=== PATIENT | female | born 1945 | race Caucasian/White ===

== ENCOUNTER 2016-07-07 11:50 | Inpatient (IN) | payer MEDICARE, MEDICAID ==
[~2016-07-07] VITALS: Ht 152.4 cm; Wt 33.4 kg
[2016-07-07 11:54] VITALS: BP 142/70; PULSE 61; RESP 20; O2SAT 100
[2016-07-07 12:54] LABS: BASOPHILS % (AUTO) 0.4 % (0-3); MONOCYTES % (AUTO) 9.4 % (4-12); Mean Corpuscular Hemoglobin 28.7 pg (27.0-35.0); Mean Corpuscular Volume 92.2 fL (81-100); NEUTROPHILS % (AUTO) 68.9 % (40-74); Platelet Count 401 bil/L (150-400)
[2016-07-07 14:03] VITALS: BP 129/72; PULSE 76; RESP 20; O2SAT 97
--- NOTE | 2016-07-07 15:10 | ED.REPORT ---
HPI-Extremity Problem Lower Date of Service Jul 07, 2016 ED Provider: Anthony Mast MD 71 year old female with diabetes and peripheral arterial disease presents to the ER referred by the residency clinic accompanied by her daughter complaining of bilateral foot pain and gangrene of her left first and second toe. Daughter reports that the patient has avoided doctors for the past 5 years, until she was recently seen by Dr. Lockhart, Cardiology, and diagnosed with PAD. Patient has a 50-year history of smoking, but quit in December 2015. She was seen last week by Dr. Arellano at the residency clinic here, and has gained 7lbs since. She is additionally seen podiatry regarding her toes but she is not sure what the plan going forward is. Nursing Notes Stated Complaint: FOOT PAIN Chief Complaint: Extremity Trauma Nursing Notes Reviewed: Yes Allergies: Coded Allergies: No Known Allergies (Verified , 07/07/16) Scheduled Atenolol (Atenolol) 25 Mg Tablet 25 MG PO DAILY Gabapentin (Gabapentin) 100 Mg Capsule 100 MG PO TID Insulin Glargine (Lantus U100 Insulin Vial) 100 Unit/Ml Vial 8-9 UNIT SUBQ HS Methimazole (Methimazole) 10 Mg Tablet 10 MG PO BID Scheduled PRN Albuterol HFA (Proair HFA) 8.5 Gm Hfa.aer.ad 2 PUFFS INH q4-6 hours PRN PRN For Shortness of Breath General Time Seen by MD: 15:09 Chief Complaint Foot injury right, Foot injury left Hx Obtained From: Patient Arrived By: Walk-in Onset Occurred: Onset unknown Location: : Foot left: Foot right Quality: Painful Severity: Current: Moderate Severity: Maximum: Moderate Pertinent Negative: Pt denies other symptoms Recent Healthcare: Recent doctor visit Past Medical History Past Medical History Notes: Dr. Mcmillan, Endocrinology Dr. Lockhart, Cardiology Past Medical History PAD Reports: COPD, Diabetes mellitus Reports: Thyroid disease (Hypothyroid) Smoking History Former Smoker Social History Other Social History: Good social support Ambulatory Status Independent Review of Systems Constitutional: Denies: Chills, Fever Musculoskeletal: Reports: Extremity pain (Feet, bilaterally), Denies: Back pain, Extremity swelling, Joint pain, Lumbar pain, Neck pain Complete sys rev & neg: except as marked. Physical Exam Physical Exam Notes: Initial Vital Signs Vital Signs (First) Date Time Temp Pulse Resp B/P Pulse Ox O2 Delivery O2 Flow Rate FiO2 07/07/16 11:54 36.9 61 20 142/70 100 Room Air Initial VS: Reviewed Head / Eyes: Atraumatic, Normocephalic Neck: Supple, Non-tender, Full range of motion Abdomen / GI: Soft, Non-tender, No guarding, No rebound, No distention Upper Extremities: Vascular intact, Neuro intact, No swelling, No tenderness Skin: Warm, Dry, No cyanosis Neurologic: Alert, Oriented, Nonfocal Lower Extremity / Pelvis / MS: Full range of motion, No deformity, Neurologic intact, Vascular intact Ankle / Foot: Full range of motion, No deformity Gangrene of th distal left 1st and 2nd toes with erythema extending up to the mid-foot. DP pulses detectable by doppler, without palpable pulses, bilaterally. Interpretation & Diagnostics Lab Results Interpretation Result Diagram: 07/07/16 1248 07/07/16 1248 Test 07/07/16 12:48 07/07/16 16:11 White Blood Count 7.0th/mm3 (3.8-10.1) Red Blood Count 3.87mil/mm3 (3.90-5.20) Hemoglobin 11.1g/dL (12.0-15.6) Hematocrit 35.7% (35.0-46.0) Mean Corpuscular Volume 92.2fL (81-100) Mean Corpuscular Hemoglobin 28.7pg (27.0-35.0) Mean Corpuscular Hemoglobin Concent 31.1% (32.0-37.0) Red Cell Distribution Width 12.1% (12.3-15.4) Platelet Count 401bil/L (150-400) Neutrophils (%) (Auto) 68.9% (40-74) Lymphocytes (%) (Auto) 19.0% (14-46) Monocytes (%) (Auto) 9.4% (4-12) Eosinophils (%) (Auto) 2.0% (0-5) Basophils (%) (Auto) 0.4% (0-3) Sodium Level 134mEq/L (134-144) Potassium Level 5.1mEq/L (3.5-5.2) Chloride Level 94mEq/L (97-108) Carbon Dioxide Level 29mmol/L (18-29) Blood Urea Nitrogen 13mg/dL (8-27) Creatinine 0.52mg/dL (0.57-1.00) Estimat Glomerular Filtration Rate 167mL/min (>59) Glucose Level 102mg/dL (60-99) Calcium Level 8.7mg/dL (8.5-10.1) Total Bilirubin 0.2mg/dL (0.0-1.2) Aspartate Amino Transf (AST/SGOT) 29U/L (0-50) Alanine Aminotransferase (ALT/SGPT) 25U/L (0-32) Alkaline Phosphatase 133U/L (25-165) Total Protein 6.3g/dL (6.4-8.4) Albumin 3.5g/dL (3.4-5.0) Lactic Acid Level 4.5mmol/L (0.4-2.0) ECG Interpretation ECG Interpretation: Sinus rhythm, rate 73 Normal axis Normal intervals No ST segment changes Nonspecific repolarization abnormalities No prior ECG available for comparison Time: 16:06 Interpreted by: ED physician X-Ray Interpretation Xray Interpretation: IMPRESSION: 1. Osteopenia without definite radiographic evidence of osteomyelitis. If clinical concern persists, recommend further evaluation with MRI. Dictated by: Esteban Cole M.D. on 07/07/2016 at 16:02 Approved by: Esteban Cole M.D. on 07/07/2016 at 16:03 X-Ray Ordered: Foot left Interpretation / Wet Read by: Interpret - Radiologist Re-Eval/Medical Decision Med Decision/Clinical Course 71 year old female with diabetes and peripheral arterial disease presents to the ER referred by the residency clinic accompanied by her daughter complaining of bilateral foot pain and gangrene of her left first and second toe. Daughter reports that the patient has avoided doctors for the past 5 years, until she was recently seen by Dr. Lockhart, Cardiology, and diagnosed with PAD. Patient has a 50-year history of smoking, but quit in December 2015. She was seen last week by Dr. Arellano at the residency clinic here, and has gained 7lbs since. She is additionally seen podiatry regarding her toes but she is not sure what the plan going forward is. Upon arrival patient is afebrile stable vital signs and examination as above. Of note she has gangrenous appearance about the distal aspect of her left first and second toes with erythema extending up to the midfoot. IV access was obtained and laboratory studies were sent. I administered IV Zosyn. Laboratory studies were notable as below: Lactic acid 4.5 Good renal function CMP otherwise normal No leukocytosis Hct 35.7 X-ray of the foot was obtained as below: 1. Osteopenia without definite radiographic evidence of osteomyelitis. If clinical concern persists, recommend further evaluation with MRI. If this time my concern for gangrene of the toes in the setting of the patient' s underlying diabetes and significant peripheral vascular disease. I feel that she requires admission for further surgical evaluation and possible vascular intervention. Patient was discussed with podiatry and they agree with plan. Discussed patient with admitting hospitalist who will further consult Dr. Beltre for possible vascular intervention. Patient has already had ultrasonography of the lower extremities evaluating extensive vascular disease. Patient was admitted for further evaluation and intervention. Source of Hx: Old records Consultation #1: Referral / Consult Name: Allan Greer DPM Call Returned at: 15:46 Note: Discussed patient case with Dr. Greer, Podiatry. Agrees to consult. Consultation #2: Referral / Consult Name: Augustine Infante MD Consulted With: Hospitalist Call Returned at: 15:59 Binding Bench Worker: Agrees with eval, Agrees with plan, Accepts admit Consultation #3: Referral / Consult Name: Toni SoM Call Returned at: 17:20 Note: Dr. So, Podiatry, is now present. Counseled Regarding: Diagnosis, Lab results, Need for admission Discharge & Departure Impression: Primary Impression: Ischemic foot Additional Impressions: Gangrene Peripheral vascular disease Type II diabetes mellitus Diabetes mellitus complication status: with unspecified complications Qualified Code: E11.8 - Type 2 diabetes mellitus with unspecified complications Elevated lactic acid level Disposition: ADMITTED TO HOSPITAL Discharge Condition All VS Reviewed: Yes Condition: Stable Referrals: [facility] Residency Clinic (PCP) Toni So DPM, Sanjeev MD Crit Care Except Billable Proc Time Spent: 75-104 minutes Services Performed: Patient management by me, Time spent at bedside, Reviewing test results, Reviewing imaging, Discussing patient care, Documentation in record, Time with fam/surrogate Scribe Attestation Portions of this note were transcribed by Jarred Montero. I, Dr. Mast, personally performed the history, physical exam and medical decision-making; I reviewed and confirmed the accuracy of the information in the transcribed note. Signed by: Shanice Chávez, 07/07/2016 and 17:22 copies to: Toni So DPM; [facility] Residency Clinic; Adonay Lockhart MD, Beck O MD Jul 07, 2016 15:10 JARRED MONTERO Jul 07, 2016 15:43
[2016-07-07] MEDS ORDERED: INSU100V7 SUBQ (15:14)
[2016-07-07] MEDS ORDERED: METH10TA4 PO (15:14)
[2016-07-07] MEDS ORDERED: GABA-502 PO (15:14)
[2016-07-07] MEDS ORDERED: ATEN25TA PO (15:14)
[2016-07-07] MEDS ORDERED: 0.9% Sodium Chloride 1,000 ML IV ONE (15:36)
[2016-07-07] MEDS ORDERED: HYDROmorphone 0.5 mg/0.5 mL iSecure Syringe IVPUSH SCH (15:40)
[2016-07-07] MEDS ORDERED: Piperacillin-Tazo 3.375 Gm Inj 3.375 GM in Dextrose 5% Minibag Plus 50 ML IV ONE (15:50)
[2016-07-07] MEDS ORDERED: Alum-Mag Hydrox-Simeth 30 mL Suspension PO PRN ×2 (15:50→16:00)
[2016-07-07] MEDS ORDERED: Ondansetron 2 mg/mL 2 mL Inj IVPUSH PRN (15:50)
[2016-07-07] MEDS ORDERED: Polyethylene Glycol (PEG) 17 Gm Powder PO PRN (16:00)
[2016-07-07] MEDS ORDERED: Glucose 40% Oral Gel 15 Gm Tube PO PRN (16:00)
--- NOTE | 2016-07-07 16:04 | DRSVH ---
PROCEDURE: X-RAY LEFT FOOT COMPLETE, MINIMUM THREE VIEWS ([id number]) INDICATIONS: gangrene, osteo? TECHNIQUE: 3 views of the foot were acquired. COMPARISON: None. FINDINGS: Bones: There is diffuse osteopenia. No discrete bony erosions or definite periosteal reaction. No fractures or dislocations. No suspicious bony lesions. Soft tissues: No tibiotalar joint effusion. Achilles tendon appears normal. IMPRESSION: 1. Osteopenia without definite radiographic evidence of osteomyelitis. If clinical concern persists , recommend further evaluation with MRI. Dictated by: Esteban Cole M.D. on 07/07/2016 at 16:02 Approved by: Esteban Cole M.D. on 07/07/2016 at 16:03
[2016-07-07] MEDS ORDERED: Piperacillin-Tazo 3.375 Gm Inj 3.375 GM in Dextrose 5% Minibag Plus 50 ML IV SCH (16:30)
[2016-07-07] MEDS ORDERED: ALBU8.5H2 INH (17:28)
[2016-07-07] MEDS ORDERED: GABA-500 PO (17:28)
--- NOTE | 2016-07-07 17:30 | NUR ---
Received report from ED RN Hortencia. Pt arrived to floor via wc. Uses FWW baseline. Pt A&O. Pt vs stable. at bedside. Pt reported pn level 7/10. Passed along to NOC RN that pain meds have not been given.
--- NOTE | 2016-07-07 17:49 | PCM.CHPPOD ---
Subjective Date of service Jul 07, 2016 History of Present Illness 71-year-old female who have seen in the outpatient setting and is a known vasculopath presented to come be by her to the residency clinic today with concern regarding increased swelling and new lesions of the left foot. Based on the description of the foot involving cellulitis to the ankle recommendation was to proceed with admission to the direct or through the ED. Patient is seen this evening in the ED ready to transfer to first floor. Patient denies fever chills malaise nor any significant constitutional symptoms. Allergy Allergies: Coded Allergies: No Known Allergies (Verified , 07/07/16) Medications Blood Thinners: Aspirin Albuterol HFA (Proair HFA) 8.5 Gm Hfa.aer.ad 2 PUFFS INH q4-6 hours PRN PRN For Shortness of Breath Atenolol (Atenolol) 25 Mg Tablet 25 MG PO DAILY Gabapentin (Gabapentin) 100 Mg Capsule 100 MG PO TID Insulin Glargine (Lantus U100 Insulin Vial) 100 Unit/Ml Vial 8-9 UNIT SUBQ HS Methimazole (Methimazole) 10 Mg Tablet 10 MG PO BID Past Medical History Surgeries: Yes (FACET INJ 6 WEEKS AGO, BLADDER) Medical History: Surgical History: Social History Hx Alcohol Use: Yes (OCCASIONAL GLASS) Hx Tobacco Use: Yes (2PPD) Smoking Status: Former Smoker Podiatry Consult Exam Vital Signs Vital Sign - Last Date Time Temp Pulse Resp B/P Pulse Ox O2 Delivery O2 Flow Rate FiO2 07/07/16 14:03 76 20 129/72 97 07/07/16 11:54 36.9 Room Air Result Diagram: 07/07/16 1248 07/07/16 1248 Lab Test 07/07/16 12:48 07/07/16 16:11 White Blood Count 7.0th/mm3 (3.8-10.1) Red Blood Count 3.87mil/mm3 (3.90-5.20) Hemoglobin 11.1g/dL (12.0-15.6) Hematocrit 35.7% (35.0-46.0) Mean Corpuscular Volume 92.2fL (81-100) Mean Corpuscular Hemoglobin 28.7pg (27.0-35.0) Mean Corpuscular Hemoglobin Concent 31.1% (32.0-37.0) Red Cell Distribution Width 12.1% (12.3-15.4) Platelet Count 401bil/L (150-400) Neutrophils (%) (Auto) 68.9% (40-74) Lymphocytes (%) (Auto) 19.0% (14-46) Monocytes (%) (Auto) 9.4% (4-12) Eosinophils (%) (Auto) 2.0% (0-5) Basophils (%) (Auto) 0.4% (0-3) Sodium Level 134mEq/L (134-144) Potassium Level 5.1mEq/L (3.5-5.2) Chloride Level 94mEq/L (97-108) Carbon Dioxide Level 29mmol/L (18-29) Blood Urea Nitrogen 13mg/dL (8-27) Creatinine 0.52mg/dL (0.57-1.00) Estimat Glomerular Filtration Rate 167mL/min (>59) Glucose Level 102mg/dL (60-99) Calcium Level 8.7mg/dL (8.5-10.1) Total Bilirubin 0.2mg/dL (0.0-1.2) Aspartate Amino Transf (AST/SGOT) 29U/L (0-50) Alanine Aminotransferase (ALT/SGPT) 25U/L (0-32) Alkaline Phosphatase 133U/L (25-165) Total Protein 6.3g/dL (6.4-8.4) Albumin 3.5g/dL (3.4-5.0) Lactic Acid Level 4.5mmol/L (0.4-2.0) Diagnostics Foot x-ray negative for osseous lesions or evidence of osteomyelitis Exam Lower Extremity Pulses: Absent: Left Dorsalis Pedis Left Posterior Tibal Right Dorsalis Pedis Right Posterior Tibal Podiatry WOUND : Wound Location/Description Lower family reexam shows diffuse ischemic hyperemia circumferentially of both forefeet mildly increased on the left. Multiple largely dry escharotic lesions are noted with a small full-thickness ulcer noted on the medial fifth digit on the right, bullous lesion distal left hallux, dry escharotic lesion of the second digit on the left. There is no apparent purulence or deep space infection. No lesions of the heels. Mild erythema left hallux. Skin is dry and xerotic otherwise. Patient does have high diminished sensation bilaterally. Musculoskeletal exam shows normal ankle subtalar midtarsal ranges of motion no significant forefoot or digital deformities noted. Assessment & Plan Assessment Mild exacerbation of ischemic ulcerations in a patient with severe critical limb ischemia who has seen vascular surgery recently with deferral of intervention due to multiple comorbidities and frail state. Problems: Plan At this visit I did de roof and superficially debrided the bulla of the left hallux, underlying epithelium is intact, aerobic culture and sensitivity taken. Light antibiotic ointment dressing is applied to the site. Recommend strict pressure avoidance, vascular consult recommended preferably with Dr. Lockhart who is familiar with this patient, although I feel she is not at risk for imminent limb loss at the present time but her healing potential is extremely guarded. Wound nurse consult requested. No debridement or surgical intervention is indicated at present, request podiatry be contacted if lesions or infection worsen and debridement or surgical intervention is indicated. Toni So DPM Jul 07, 2016 17:49
[2016-07-07 18:08] VITALS: BP 153/55; PULSE 59; RESP 16; O2SAT 93
[2016-07-07] MEDS ORDERED: HYDROmorphone 0.5 mg/0.5 mL iSecure Syringe IVPUSH PRN (18:35)
[2016-07-07 18:46] VITALS: PULSE 73
[2016-07-07 19:50] LABS: APPEARANCE,URINE CLEAR (CLEAR,HAZY); COLOR,URINE YELLOW (YELLOW)
[2016-07-07 19:51] LABS: OCCULT BLOOD,URINE NEGATIVE (NEGATIVE); UROBILINOGEN,URINE NORMAL (NORMAL)
[2016-07-07 20:00] VITALS: PULSE 85
[2016-07-07] MEDS: 0.9% Sodium Chloride 1,000 ML IV SCH (20:25)
[2016-07-07] MEDS: Heparin 5,000 Unit/mL Inj SUBQ SCH (20:46)
[2016-07-07] MEDS: Insulin LISPRO 300 Unit/3 mL Inj SUBQ SCH ×2 (20:47→22:00)
[2016-07-07] MEDS: HYDROmorphone 1 mg/mL Inj IVPUSH PRN (22:23)
--- NOTE | 2016-07-07 22:53 | PCM.HPMED ---
Subjective Date of Service Jul 07, 2016 Primary Provider: Admitting Physician: Augustine Infante MD Primary Care Physician: Clinic,[facility] Residency Attending Physician: Augustine Infante MD Admit Status: From the Emergency Department, Full Admit, Remote Telemetry Chief Complaint: Left foot and toe swelling and pain History of Present Illness: Zuleyka Fields is a 71 year old female with diabetes, Peripheral Arterial disease, Malnorished who presents to [facility] emergency department referred by the residency clinic due to bilateral foot pain and worsening left foot ulcer Patient is Diabetic and have right foot ulcer being followed by Podiatry however she has 2 new scabs on her left first and second toes that has been swollen and turning red with significant pain causing lack of sleep. She denies any injuries. No fever or chills reported. Daughter reports that the patient has avoided doctors for the past 5 years, until she was recently seen by Dr. Lockhart, Cardiology, and diagnosed with PAD. Patient has a 50-year history of smoking, but quit in December 2015. She was seen last week by Dr. Arellano at the residency clinic here, and has gained 7lbs since. Patient currently plan to have extensive dental surgery. She will have her teeth removed and get implants in the lower jaw and a plate in the upper. She was evaluated for dysphagia by ENT recently and reports that she had a normal exam and has no trouble swallowing. Since her low BMI of was part of her high risk for surgery she has been drinking lots of extra protein drinks and has gained 7 lbs. Case discussed with Dr Mast, antibiotics started. He spoke to Dr So from Podiatry for consultation. Review of Systems: Pertinent positives as noted in HPI. All other systems were reviewed and are negative Allergies Coded Allergies: No Known Allergies (Verified , 07/07/16) Home Medications From [facility], not yet confirmed Zuleyka Fields [id number] 1945 07/07/2016 10:00 AM 05/22 1st Tier Unifine Pentips Plus 32 gauge x " needle Use with insulin administration atenolol 25 mg tablet take 1 tablet by oral route every day Blood Glucose Monitoring kit use to check blood glucose daily gabapentin 100 mg capsule take 1 capsule by oral route 3 times every day lancets 30 gauge use to check blood glucose daily Lantus Solostar 100 unit/mL (3 mL) subcutaneous insulin pen Inject 10 units by subcutaneous route once daily methimazole 10 mg tablet take 1 tablet by oral route 2 times every day OneTouch Verio strips check blood sugar 3 times per day Ultra Thin Lancets 31 gauge use to check blood sugar three times per day Ventolin HFA 90 mcg/actuation aerosol inhaler inhale 2 puff by inhalation route every 4 - 6 hours as needed PMH Hypertension Bladder cancer Chronic pancreatitis Malnourished Hyperlipidemia Type 2 Diabetes with polyneuropathy COPD Coronary artery disease Peripheral vascular disease Osteoporosis Vitamin D deficiency Depression . Surgical History C section Appendectomy Fibromectomy fomr left sinus and jaw Bladder cancer surgery Family History No family history of premature coronary artery disease Social History Hx Alcohol Use: Yes (OCCASIONAL GLASS) Hx Tobacco Use: Yes (2PPD) Smoking Status: Former Smoker Living Arrangement: with Family (with her ) Exam Vital Signs Vital Sign - Last Date Time Temp Pulse Resp B/P Pulse Ox O2 Delivery O2 Flow Rate FiO2 07/07/16 18:08 36.5 59 16 153/55 93 Room Air Exam General: Alert, Oriented X3, Cooperative, No acute Distress but Malnorished and Cachectic looking Eyes: PERRLA, Scleral Anicteric Mouth: Mouth Normal, Mucous Membranes Moist/[place] Neck: Supple, no Thyromegaly, trachea central. Chest & Lungs: Clear to auscultation & percussion, No adventitious breath sounds, no crackles, no wheeze Cardiovascular: Normal S1, Normal S2, No Murmurs/Rubs/Gallops, Regular Rate/ Rhythm, (No JVD, no peripheral edema) Pulses: Radial (present and equal), Dorsalis Pedi (present and equal) Abdomen: Soft, Non-tender, Non-distended, Normoactive bowel tones. Musculoskeletal: Unremarkable. Normal range of motion, no swollen or erythematous joints Extremities: first and second left toes swelling, erythema noted with tenderness Skin: No rashes. Warm and dry, no erythematous areas Neurological: Grossly neurologically intact, has generalized weakness, Normal Speech, Sensation Intact Lymphatic: Lymph nodes Cervical and Axillary not palpable. Lab and Diagnostics Labs Laboratory Tests Test 07/07/16 12:48 07/07/16 16:11 White Blood Count 7.0th/mm3 (3.8-10.1) Red Blood Count 3.87mil/mm3 (3.90-5.20) Hemoglobin 11.1g/dL (12.0-15.6) Hematocrit 35.7% (35.0-46.0) Mean Corpuscular Volume 92.2fL (81-100) Mean Corpuscular Hemoglobin 28.7pg (27.0-35.0) Mean Corpuscular Hemoglobin Concent 31.1% (32.0-37.0) Red Cell Distribution Width 12.1% (12.3-15.4) Platelet Count 401bil/L (150-400) Neutrophils (%) (Auto) 68.9% (40-74) Lymphocytes (%) (Auto) 19.0% (14-46) Monocytes (%) (Auto) 9.4% (4-12) Eosinophils (%) (Auto) 2.0% (0-5) Basophils (%) (Auto) 0.4% (0-3) Sodium Level 134mEq/L (134-144) Potassium Level 5.1mEq/L (3.5-5.2) Chloride Level 94mEq/L (97-108) Carbon Dioxide Level 29mmol/L (18-29) Blood Urea Nitrogen 13mg/dL (8-27) Creatinine 0.52mg/dL (0.57-1.00) Estimat Glomerular Filtration Rate 167mL/min (>59) Glucose Level 102mg/dL (60-99) Calcium Level 8.7mg/dL (8.5-10.1) Total Bilirubin 0.2mg/dL (0.0-1.2) Aspartate Amino Transf (AST/SGOT) 29U/L (0-50) Alanine Aminotransferase (ALT/SGPT) 25U/L (0-32) Alkaline Phosphatase 133U/L (25-165) Total Protein 6.3g/dL (6.4-8.4) Albumin 3.5g/dL (3.4-5.0) Lactic Acid Level 4.5mmol/L (0.4-2.0) Microbiology 07/07/16 Blood Culture, Received Pending Result Diagram: 07/07/16 1248 07/07/16 1248 X-Rays, CTs and MRIs X-RAY LEFT FOOT COMPLETE, MINIMUM THREE VIEWS 07/07 IMPRESSION: 1. Osteopenia without definite radiographic evidence of osteomyelitis. If clinical concern persists, recommend further evaluation with MRI. Dictated by: Esteban Cole M.D. on 07/07/2016 at 16:02 Approved by: Esteban Cole M.D. on 07/07/2016 at 16:03 Assessment & Plan Zuleyka Fields is a 71 year old female with diabetes, Peripheral Arterial disease, Malnorished who presents to [facility] emergency department referred by the residency clinic due to bilateral foot pain and worsening left foot ulcer 1. Mild exacerbation of ischemic ulcerations in a patient with cellulitis and possible severe critical limb ischemia. Present on admission - poor surgical candidate due to multiple co morbidities and frail state. Surgery can be done is a emergent situation otherwise a Cardiology Medical clearance is needed. - will contact Dr Lockhart tomorrow for vascular consultation as suggested by Dr So - continuing Zosyn IV for empiric antibiotics - Podiatry consulted, appreciate Dr So's expertise 2. Type 2 Diabetes with polyneuropathy - low correction Lispro algorithm - holding Lantus dose tonight - checking A1c - continuing Gabapentin 100 mg tid 3. Atherosclerotic disease with coronary and Peripheral arterial disease - will consider stating Aspirin and a statin - defer to Cardiology when consulted 4 Hypertension - continue Atenolol 25 mg daily 5 Protein Malnutrition BMI 16.1 - consider Nutritional consult - Acetaminophen as needed for mild pain/fever/headache - Bowel regimen as needed - Antiemetic as needed Patient admitted under inpatient status with expected length of stay > 2 midnights for severity of present symptoms, complexities of treatment plan and risk for adverse event . Resuscitation Status: CPR: Attempt Resuscitation Augustine Infante MD Jul 07, 2016 18:18
[2016-07-08] VITALS (7 sets, daily range): BP systolic 163–191; BP diastolic 67–90; PULSE 66–81; RESP 16–18; O2SAT 94–99
[2016-07-08] MEDS: Heparin 5,000 Unit/mL Inj SUBQ SCH ×3 (05:08→17:41)
[2016-07-08] MEDS: HYDROmorphone 1 mg/mL Inj IVPUSH PRN ×5 (05:13→23:39)
--- NOTE | 2016-07-08 06:25 | NUR ---
Foot Pain Admit completed. Per MD orders strict pressure avoidance for feet, floated on pillow and blanket cradle in place. Warm blanket provided to ankles, pt reports very comfortable with the set up. She is AOX4, good mobility and utilizes call light. L AC IV became dislodged, new one placed by IV therapy 07/07 in L forearm. IV fluids and ABX infusing without issue. PT incontinent once, otherwise ambulates to BR with fww. UA sent. Dilauded IV for pain management. NPO at midnight Care continues
[2016-07-08] MEDS: 0.9% Sodium Chloride 1,000 ML IV SCH ×3 (07:53→21:58)
[2016-07-08] MEDS: Insulin LISPRO 300 Unit/3 mL Inj SUBQ SCH ×5 (09:36→22:00)
[2016-07-08] MEDS: Piperacillin-Tazo 3.375 Gm Inj 3.375 GM in Dextrose 5% Minibag Plus 50 ML IV SCH ×2 (09:38→17:41)
--- NOTE | 2016-07-08 15:38 | PCM.PNMED ---
Subjective Date of Service Jul 08, 2016 Subjective Patient seen and examined. Patient had no acute events overnight. Patient has been relatively stable. Patient was seen by podiatry in the am. Exam Vital Signs Vital Sign - Last Date Time Temp Pulse Resp B/P Pulse Ox O2 Delivery O2 Flow Rate FiO2 07/08/16 14:58 36.4 78 16 163/68 99 Room Air Intake and Output 07/07/16 07/07/16 07/08/16 Cumulative From/Thru 15:00 23:00 07:00 07/07/16 11:54 - 07/08/16 06:45 Intake Total 0 ml 990 ml 990 ml Output Total 0 ml 950 ml 950 ml Balance 0 ml 40 ml 40 ml Intake Oral 0 ml 990 ml 990 ml Output Urine Total 0 ml 950 ml 950 ml Exam General: Alert, Oriented X3, Cooperative, No acute Distress but Malnorished and Cachectic looking Eyes: PERRLA, Scleral Anicteric Mouth: Mouth Normal, Mucous Membranes Moist/[place] Neck: Supple, no Thyromegaly, trachea central. Chest & Lungs: Clear to auscultation & percussion, No adventitious breath sounds, no crackles, no wheeze Cardiovascular: Normal S1, Normal S2, No Murmurs/Rubs/Gallops, Regular Rate/ Rhythm, (No JVD, no peripheral edema) Pulses: Radial (present and equal), Dorsalis Pedi (present and equal) Abdomen: Soft, Non-tender, Non-distended, Normoactive bowel tones. Musculoskeletal: Unremarkable. Normal range of motion, no swollen or erythematous joints Ext: left foot erythema, large ulcers with eschar on left fifth digit and second digit . Decreased sensation. appropriate motor function Lab and Diagnostics Result Diagram: 07/07/16 1248 07/07/16 1248 X-Rays, CTs and MRIs X-RAY LEFT FOOT COMPLETE, MINIMUM THREE VIEWS 07/07 IMPRESSION: 1. Osteopenia without definite radiographic evidence of osteomyelitis. If clinical concern persists, recommend further evaluation with MRI. Dictated by: Esteban Cole M.D. on 07/07/2016 at 16:02 Approved by: Esteban Cole M.D. on 07/07/2016 at 16:03 Assessment & Plan Zuleyka Fields is a 71 year old female with diabetes, Peripheral Arterial disease, Malnorished who presents to [facility] emergency department referred by the residency clinic due to bilateral foot pain and worsening left foot ulcer 1. Mild exacerbation of ischemic ulcerations in a patient with cellulitis and possible severe critical limb ischemia. Present on admission - poor surgical candidate due to multiple co morbidities and frail state. No surgery planned for the time being - Podiatry consult by Dr Judah stearns - continuing Zosyn IV for empiric antibiotics 2. Type 2 Diabetes with polyneuropathy - low correction Lispro algorithm - holding Lantus dose tonight - continuing Gabapentin 100 mg tid 3. Atherosclerotic disease with coronary and Peripheral arterial disease - will consider stating Aspirin and a statin - defer to Cardiology when consulted 4 Hypertension - continue Atenolol 25 mg daily 5 Protein Malnutrition BMI 16.1 - consider Nutritional consult - Acetaminophen as needed for mild pain/fever/headache - Bowel regimen as needed - Antiemetic as needed Patient admitted under inpatient status with expected length of stay > 2 midnights for severity of present symptoms, complexities of treatment plan and risk for adverse event . Resuscitation Status: CPR: Attempt Resuscitation Dustin Domingo MD Jul 08, 2016 15:38
--- NOTE | 2016-07-08 16:22 | NUR ---
NUTRITION ASSESSMENT: ASSESS: 71 YO female admitted for ischemic Left foot and toe swelling and pain. Pt is chronically underweight per EMR review but per MD notes, pt has gained 7 lbs recently by drinking lots of extra protein drinks. PMHx: HTN, bladder cancer, chronic pancreatitis, malnourished, hyperlipidemia, Type 2 DM with polyneuropathy, COPD, CAD, PVD, osteoporosis, Vit D deficiency, Depression. LABS: Reviewed. Alb 3.5, A1C 8.0 MEDS: Reviewed. GI: No BM reported. SKIN: Chronic R foot ulcers, followed by podiatry. New L foot ulcers. CURRENT WT: 33.4 kg. IBW: 45.45 kg. DIET: Heart Healthy, Diabetic. No po intake reported yet. EST. NEEDS: 8826-2322 kcals (30-40 kcals/kg BW), 55-70 g/kg IBW) NUTRITION DIAGNOSIS: 1.) Underweight related to unknown etiology as evidenced by chronic underweight status with BMI of 14.4. 2.) Increased nutrient needs related to increased demand for nutrients for disease state as evidenced by chronic wounds and BMI of 14.4. NUTRITION INTERVENTION: 1.) Will add ensure to all trays to encourage adequate po intake for healing and weight gain. MONITOR / EVAL: PO intake, labs, wounds, nutritional status. Follow per high nutritional risk guidelines. Addendum: 07/09/16 at [address] Snacks/supplements changed to cottage cheese on all trays and magic cups between meals. Pt states she does not like Ensure and had multiple bottles unopened in her room.
[2016-07-08] MEDS: Ondansetron 2 mg/mL 2 mL Inj IVPUSH PRN ×2 (16:30→23:37)
--- NOTE | 2016-07-08 16:45 | NUR ---
Wound Care Wound evaluation orders received, pt seen at bedside. Zuleyka Fields is a 71 year old female with diabetes, Peripheral Arterial disease, Malnourished who presents to [facility] emergency department referred by the residency clinic due to bilateral foot pain and worsening left foot ulcer. There is a small full-thickness ulcer noted on the medial fifth digit on the right approx 1 cm L x 0.5 cm W x 0.2 cm D, bullous lesion distal left hallux approx 2 cm L x 2 CM W x 0.1 cm D, dry eschar covered lesion of the second digit on the left approx 0.5 cm L x 0.5 cm W x flush. I am unable to palpate pulses at DP or DIRECT SUPPORT WORKER on left or right, wounds are painful to the touch. Dressed these wounds with betadine moistened gauze and stockinette, these can be changed daily by nursing. Both heels are red but blanchable, these are floated with pillows and recommend this practice be continued. Ischemic ulcers of the toes, follow up with Dr So or the wound center on discharge.
--- NOTE | 2016-07-08 19:20 | NUR ---
Pain Pt is alert and oriented. Pain control is an issue with this pt. It has been recommended that pt do interventions to control pain besides the pain medication given. Pt is encouraged to deep breath and keep lower extremities elevated. Pillows have been placed underneath heels to elevate and prevent more issues with circulation. Bed is low and call light is within reach.
--- NOTE | 2016-07-08 20:02 | NUR ---
pain/vomiting Pt pain controlled with 0.5mg IV Dilaudid [id number], dressing change done by wound care Pt became nauseous and vomited pt stated "It was because I ate the Tomato soup" Zofran administered, no complaints of nausea or vomiting since.
[2016-07-09] VITALS (9 sets, daily range): BP systolic 158–180; BP diastolic 69–85; PULSE 59–82; RESP 16; O2SAT 93–98
[2016-07-09] MEDS: Heparin 5,000 Unit/mL Inj SUBQ SCH ×3 (01:03→16:44)
[2016-07-09] MEDS: Piperacillin-Tazo 3.375 Gm Inj 3.375 GM in Dextrose 5% Minibag Plus 50 ML IV SCH ×3 (01:03→16:38)
--- NOTE | 2016-07-09 02:06 | NUR ---
Pain/vomiting Pt reporting pain up to 7/8 out of 10 to toes and has been taking 0.5mg IV Dilaudid q 4 hrs to manage pain. Pt did vomit small amount, unmeasured and was given 4mg IV Zofran with relief of nausea. Bilateral dressings to feet are CDI. [place] cradle in place to keep pressure off toes.
[2016-07-09] MEDS: 0.9% Sodium Chloride 1,000 ML IV SCH ×2 (03:53→22:31)
[2016-07-09] MEDS: HYDROmorphone 1 mg/mL Inj IVPUSH PRN ×2 (03:54→08:25)
[2016-07-09] MEDS: Ondansetron 2 mg/mL 2 mL Inj IVPUSH PRN (03:58)
--- NOTE | 2016-07-09 05:34 | NUR ---
BP Pt BP trending high, this morning 180/71, after review of eMAR and Med rec, pt normally takes Atenolol 25mg PO daily. paged and order received to start BP medication.
[2016-07-09 06:07] LABS: BASOPHILS % (AUTO) 0.3 % (0-3); EOSINOPHILS % (AUTO) 1.2 % (0-5); MONOCYTES % (AUTO) 8.2 % (4-12); Mean Corpuscular Hemoglobin 28.9 pg (27.0-35.0); Mean Corpuscular Volume 90.3 fL (81-100); NEUTROPHILS % (AUTO) 73.6 % (40-74); Platelet Count 302 bil/L (150-400)
[2016-07-09] MEDS: Insulin LISPRO 300 Unit/3 mL Inj SUBQ SCH ×4 (08:00→22:00)
[2016-07-09] MEDS ORDERED: oxyCODONE-Acetamin 5-325 mg Tablet PO PRN (10:10)
--- NOTE | 2016-07-09 10:52 | NUR ---
Social Work-initial assessment: Data:See initial assessment. Pt is a 71 y/o female who was admitted on 07/07/16 for ischemic left foot per H&P. Pt's insurance is [employer] and PCP is [facility]. EMR Reviewed. FLORES met with pt at bedside to discuss discharge planning,SW role explained. Pt is alert and oriented x3. Pt resides at home with her , daughter, son in law, and grandchildren where she remains independent with ADLs. Pt does not drive and uses a fww at baseline. Pt has no HH or SNF history. Pt has no detention care insurance or VA benefits. SW discussed DPOA/ advanced directive, pt states she has completed this, SW encouraged her to bring a copy into the hospital. Pt states her family will provide transport home at discharge. SW provided phone number and plan on white board in room. Pt is followed by Dr. So with Podiatry and will continue on IV abx. R/O HH services. F2F in folder. SW will continue to follow. Assessment:Pt who is independent at baseline. Plan:Anticipate pt to discharge home. R/O HH services. F2F in folder. SW will continue to follow. YAHIR Raines Addendum: 07/09/16 at 1107 by TIERRA MADSEN Amended: Links added.
--- NOTE | 2016-07-09 14:39 | PCM.PNMED ---
Subjective Date of Service Jul 09, 2016 Subjective Patient seen and examined. Patient is on day two of antibiotics. Patient has improved erythema. Patient is otherwise stable, tolerating diet. Exam Vital Signs Vital Sign - Last Date Time Temp Pulse Resp B/P Pulse Ox O2 Delivery O2 Flow Rate FiO2 07/09/16 13:05 36.8 63 16 164/74 95 Room Air Intake and Output 07/08/16 07/08/16 07/09/16 Cumulative From/Thru 15:00 23:00 07:00 07/07/16 11:54 - 07/09/16 06:04 Intake Total 1031 ml 1458 ml 1355 ml 4834 ml Output Total 702 ml 1650 ml 3302 ml Balance 1031 ml 756 ml -295 ml 1532 ml Intake Oral 350 ml 200 ml 1540 ml IV Total 1031 ml 1108 ml 1155 ml 3294 ml Output Urine Total 700 ml 1500 ml 3150 ml Emesis 2 ml 150 ml 152 ml # Bowel Movements 1 0 1 Exam General: Alert, Oriented X3, Cooperative, No acute Distress but Malnorished and Cachectic looking Eyes: PERRLA, Scleral Anicteric Mouth: Mouth Normal, Mucous Membranes Moist/[place] Neck: Supple, no Thyromegaly, trachea central. Chest & Lungs: Clear to auscultation & percussion, No adventitious breath sounds, no crackles, no wheeze Cardiovascular: Normal S1, Normal S2, No Murmurs/Rubs/Gallops, Regular Rate/ Rhythm, (No JVD, no peripheral edema) Pulses: Radial (present and equal), Dorsalis Pedi (present and equal) Abdomen: Soft, Non-tender, Non-distended, Normoactive bowel tones. Musculoskeletal: Unremarkable. Normal range of motion, no swollen or erythematous joints Extremities: first and second left toes swelling, erythema noted with tenderness Skin: No rashes. Warm and dry, no erythematous areas Neurological: Grossly neurologically intact, has generalized weakness, Normal Speech, Sensation Intact Lymphatic: Lymph nodes Cervical and Axillary not palpable. IVs and Medications Medications Reviewed: Medications were reviewed in detail Lab and Diagnostics Result Diagram: 07/09/16 0535 07/07/16 1248 X-Rays, CTs and MRIs X-RAY LEFT FOOT COMPLETE, MINIMUM THREE VIEWS 07/07 IMPRESSION: 1. Osteopenia without definite radiographic evidence of osteomyelitis. If clinical concern persists, recommend further evaluation with MRI. Dictated by: Esteban Cole M.D. on 07/07/2016 at 16:02 Approved by: Esteban Cole M.D. on 07/07/2016 at 16:03 Assessment & Plan Zuleyka Fields is a 71 year old female with diabetes, Peripheral Arterial disease, Malnorished who presents to [facility] emergency department referred by the residency clinic due to bilateral foot pain and worsening left foot ulcer 1. Mild exacerbation of ischemic ulcerations in a patient with cellulitis and possible severe critical limb ischemia. Present on admission - poor surgical candidate due to multiple co morbidities and frail state. No surgery planned for the time being - Podiatry consult by Dr Judah stearns - continuing Zosyn IV for empiric antibiotics 2. Type 2 Diabetes with polyneuropathy - low correction Lispro algorithm - holding Lantus dose tonight - continuing Gabapentin 100 mg tid 3. Atherosclerotic disease with coronary and Peripheral arterial disease - will consider stating Aspirin and a statin - defer to Cardiology when consulted 4 Hypertension - continue Atenolol 25 mg daily 5 Protein Malnutrition BMI 16.1/Moderate malnutrition - Will provide nutritional supplementation while in patient - will continue to monitor nutritional status with weights and nutritional protein assessment - Acetaminophen as needed for mild pain/fever/headache - Bowel regimen as needed - Antiemetic as needed Patient admitted under inpatient status with expected length of stay > 2 midnights for severity of present symptoms, complexities of treatment plan and risk for adverse event . Resuscitation Status: CPR: Attempt Resuscitation Dustin Domingo MD Jul 09, 2016 14:34
--- NOTE | 2016-07-09 19:54 | NUR ---
Pain/Nausea Switched patient from IV Dilauded to PO Percocet to try to improve nausea. Patient tolerated well, however requested more nausea meds this pm prior to dinner as a preventative measure stating "I just don't want to throw up" but is not actively nauseated. I encouraged patient to try to tolerated small, slow bites of dinner to see how she did. Passed this information on to shift superintendent caustic cresylate RN.
--- NOTE | 2016-07-09 20:17 | NUR ---
PAIN P: Patient states she is in pain (7.5/10) and is requesting pain medication. Her last dose of Percocet was at 1606, and is only dosed for q6 hrs I: I passed information onto RN, and RN is calling doc to find out if we can increase dosage amount or timing. E: Waiting to hear back from the MD. S: Patient in bed, bed down, 2 rails up, nonskid socks on. Care continues
--- NOTE | 2016-07-09 20:49 | NUR ---
pain patient rates pain to her feet as an 8. requests pain medication. percocet ordered every 6 hours as needed. last given at 1600. notified night hospitalist via [employer] paging. care ongoing.
[2016-07-09] MEDS: oxyCODONE-Acetamin 5-325 mg Tablet PO PRN (22:37)
[2016-07-10] VITALS (7 sets, daily range): BP systolic 132–181; BP diastolic 58–76; PULSE 54–75; RESP 14–16; O2SAT 93–96
[2016-07-10] MEDS: Piperacillin-Tazo 3.375 Gm Inj 3.375 GM in Dextrose 5% Minibag Plus 50 ML IV SCH ×2 (01:14→08:40)
[2016-07-10] MEDS: Heparin 5,000 Unit/mL Inj SUBQ SCH ×2 (01:17→08:41)
[2016-07-10] MEDS: oxyCODONE-Acetamin 5-325 mg Tablet PO PRN ×2 (04:25→10:29)
--- NOTE | 2016-07-10 06:08 | NUR ---
dressing change dressing change to bilateral toes. minimal drainage on left 2nd toe dressing no drainage to right toe. feet are elevated on pillow with c ring to keep the blankets off the feet.
[2016-07-10 06:22] LABS: BASOPHILS % (AUTO) 0.2 % (0-3); EOSINOPHILS % (AUTO) 2.9 % (0-5); MONOCYTES % (AUTO) 10.8 % (4-12); Mean Corpuscular Hemoglobin 29.3 pg (27.0-35.0); Mean Corpuscular Volume 90.9 fL (81-100); NEUTROPHILS % (AUTO) 63.8 % (40-74); Platelet Count 311 bil/L (150-400)
[2016-07-10] MEDS: 0.9% Sodium Chloride 1,000 ML IV SCH (06:22)
[2016-07-10] MEDS: Insulin LISPRO 300 Unit/3 mL Inj SUBQ SCH ×2 (08:00→11:49)
--- NOTE | 2016-07-10 12:18 | PCM.DIMED ---
Discharge Instructions Date of Service Jul 10, 2016 Dates of Hospitalization Jul 07, 2016 at 16:56 Diet Heart Healthy Activity Other (as tolerated and instructed by Physical therapy and Podiatry) Patient Instructions Follow-up plan Wound Care Clinic as they have instructed Follow-up with PCP in: 1 week Provider: Toni So DPM Follow-up in: 1 week Alyx Shaver MD Jul 10, 2016 12:18
[2016-07-10] MEDS ORDERED: AMOX-366 PO (12:22)
[2016-07-10] MEDS ORDERED: OXYC1TAB24 PO (12:22)
--- NOTE | 2016-07-10 12:30 | PCM.DC.MED ---
Discharge Summary Date of Service Jul 10, 2016 Dates of Hospitalization Date of Hospital Admission Jul 07, 2016 at 16:56 Date of Discharge: Jul 10, 2016 Providers: Admitting Physician: Augustine Infante MD [facility] Attending Physician: Augustine Infante MD Diagnosis at Time of Discharge Diagnosis at Time of Discharge Cellulitis of left lower limb, type II diabetes, peripheral vascular disease Consultations Podiatry, wound clinic Procedures XRay, CTs & MRIs X-RAY LEFT FOOT COMPLETE, MINIMUM THREE VIEWS 07/07 IMPRESSION: 1. Osteopenia without definite radiographic evidence of osteomyelitis. If clinical concern persists, recommend further evaluation with MRI. Dictated by: Esteban Cole M.D. on 07/07/2016 at 16:02 Approved by: Esteban Cole M.D. on 07/07/2016 at 16:03 Brief History Zuleyka Fields is a 71 year old female with diabetes, Peripheral Arterial disease, Malnorished who presents to [facility] emergency department referred by the residency clinic due to bilateral foot pain and worsening left foot ulcer Patient is Diabetic and have right foot ulcer being followed by Podiatry however she has 2 new scabs on her left first and second toes that has been swollen and turning red with significant pain causing lack of sleep. She denies any injuries. No fever or chills reported. Daughter reports that the patient has avoided doctors for the past 5 years, until she was recently seen by Dr. Lockhart, Cardiology, and diagnosed with PAD. Patient has a 50-year history of smoking, but quit in December 2015. She was seen last week by Dr. Arellano at the residency clinic here, and has gained 7lbs since. Patient currently plan to have extensive dental surgery. She will have her teeth removed and get implants in the lower jaw and a plate in the upper. She was evaluated for dysphagia by ENT recently and reports that she had a normal exam and has no trouble swallowing. Since her low BMI of was part of her high risk for surgery she has been drinking lots of extra protein drinks and has gained 7 lbs. Case discussed with Dr Mast, antibiotics started. He spoke to Dr So from Podiatry for consultation. Hospital Course Zuleyka Fields is a 71 year old female with diabetes, Peripheral Arterial disease, Malnorished who presents to [facility] emergency department referred by the residency clinic due to bilateral foot pain and worsening left foot ulcer 1. Mild exacerbation of ischemic ulcerations in a patient with cellulitis and possible severe critical limb ischemia. Present on admission - poor surgical candidate due to multiple co morbidities and frail state. No surgery planned for the time being - Podiatry consult by Dr So appreciated - continuing Zosyn IV for empiric antibiotics but will discharge home today on by mouth Augmentin. -Patient is to follow-up with podiatry and wound care as an outpatient. -Physical therapy to do assessment prior to patient leaving -Patient denies any problems with ambulating at this time and uses a front wheel walker at home. 2. Type 2 Diabetes with polyneuropathy - low correction Lispro algorithm - continuing Gabapentin 100 mg tid 3. Atherosclerotic disease with coronary and Peripheral arterial disease - will consider stating Aspirin and a statin 4 Hypertension - continue Atenolol 25 mg daily 5 Protein Malnutrition BMI 16.1/Moderate malnutrition - Will provide nutritional supplementation while in patient - will continue to monitor nutritional status with weights and nutritional protein assessment - Acetaminophen as needed for mild pain/fever/headache - Bowel regimen as needed - Antiemetic as needed Patient admitted under inpatient status with expected length of stay > 2 midnights for severity of present symptoms, complexities of treatment plan and risk for adverse event . Exam Vital Signs (Last) Date Time Temp Pulse Resp B/P Pulse Ox O2 Delivery O2 Flow Rate FiO2 07/10/16 09:44 71 14 154/58 Room Air 07/10/16 04:30 36.5 95 Exam Constitutional: Elderly woman in no acute distress Head: Normocephalic atraumatic Chest: Clear to auscultation Cor: Regular rate and rhythm, S1-S2 without murmur Abdomen: Soft nontender bowel sounds present Extremities: No ankle edema, bilateral distal feet are dressed Neuro: Alert and oriented 3, motor strength is intact bilaterally Test 07/07/16 12:48 07/07/16 19:38 07/09/16 05:35 07/10/16 05:40 Hemoglobin A1c 8.0% (4.8-5.6) Total Bilirubin 0.2mg/dL (0.0-1.2) Aspartate Amino Transf (AST/SGOT) 29U/L (0-50) Alanine Aminotransferase (ALT/SGPT) 25U/L (0-32) Alkaline Phosphatase 133U/L (25-165) Total Protein 6.3g/dL (6.4-8.4) Albumin 3.5g/dL (3.4-5.0) Urine Color Yellow (YELLOW) Urine Appearance Clear (CLEAR,HAZY) Urine pH 7.0 (5.0-8.0) Urine Specific Sophia 1.010 (1.003-1.035) Urine Protein Negativemg/dL (NEG,TRACE) Urine Glucose (UA) 500mg/dL (NEGATIVE) Urine Ketones Negativemg/dL (NEGATIVE) Urine Occult Blood Negative (NEGATIVE) Urine Nitrite Negative (NEGATIVE) Urine Bilirubin Negative (NEGATIVE) Urine Urobilinogen Normalmg/dL (NORMAL) Urine Leukocyte Esterase Negative (NEGATIVE) Urine RBC 0-2/hpf (0-2) Urine WBC 0-5/hpf (0-5) Urine Epithelial Cells None/hpf (NONE-MOD) Urine Crystals None seen (NONE SEEN) Urine Bacteria None/hpf (NONE-FEW) Urine Hyaline Casts None/lpf (NONE) Urine Granular Casts None seen (NONE SEEN) Urine Waxy Casts None seen (NONE SEEN) Urine Red Blood Cell Casts None seen (NONE SEEN) Urine White Blood Cell Casts None seen (NONE SEEN) Urine Mucus None seen (None Seen) Urine Trichomonas None seen (NONE SEEN) Urine Yeast None (NONE SEEN) Urinalysis Comment None Urine Culture Reflexed Not indicated Lactic Acid Level 0.7mmol/L (0.4-2.0) White Blood Count 4.9th/mm3 (3.8-10.1) Red Blood Count 3.28mil/mm3 (3.90-5.20) Hemoglobin 9.6g/dL (12.0-15.6) Hematocrit 29.8% (35.0-46.0) Mean Corpuscular Volume 90.9fL (81-100) Mean Corpuscular Hemoglobin 29.3pg (27.0-35.0) Mean Corpuscular Hemoglobin Concent 32.2% (32.0-37.0) Red Cell Distribution Width 11.9% (12.3-15.4) Platelet Count 311bil/L (150-400) Neutrophils (%) (Auto) 63.8% (40-74) Lymphocytes (%) (Auto) 22.1% (14-46) Monocytes (%) (Auto) 10.8% (4-12) Eosinophils (%) (Auto) 2.9% (0-5) Basophils (%) (Auto) 0.2% (0-3) Sodium Level 137mEq/L (134-144) Potassium Level 3.7mEq/L (3.5-5.2) Chloride Level 99mEq/L (97-108) Carbon Dioxide Level 26mmol/L (18-29) Blood Urea Nitrogen 5mg/dL (8-27) Creatinine 0.54mg/dL (0.57-1.00) Estimat Glomerular Filtration Rate 159mL/min (>59) Glucose Level 130mg/dL (60-99) Calcium Level 8.1mg/dL (8.5-10.1) Discharge Medications Discharge Medications Amoxicillin/Clav K 875-125 mg (Augmentin 875-125 mg) 1 Each Tablet 1 TABLET PO BID Prescribed by: ALYX SHAVER MD Atenolol (Atenolol) 25 Mg Tablet 25 MG PO DAILY (Reported) Gabapentin (Gabapentin) 100 Mg Capsule 100 MG PO TID (Reported) Insulin Glargine (Lantus U100 Insulin Vial) 100 Unit/Ml Vial 8-9 UNIT SUBQ HS ( Reported) Methimazole (Methimazole) 10 Mg Tablet 10 MG PO BID (Reported) As needed Albuterol HFA (Proair HFA) 8.5 Gm Hfa.aer.ad 2 PUFFS INH q4-6 hours PRN PRN For Shortness of Breath (Reported) oxyCODONE-Acetaminophen 5-325 mg (oxyCODONE-Acetaminophen 5-325 mg) 1 Each Tablet 1 TAB PO Q4H PRN PRN For Pain Prescribed by: ALYX SHAVER MD Followup Plan Follow-up plan Wound Care Clinic as they have instructed Discharge Diet: Heart Healthy Discharge Activity: Other (as tolerated and instructed by Physical therapy and Podiatry) Follow-up with PCP in: 1 week Provider: Toni So DPRj Follow-up in: 1 week Alyx Shaver MD Jul 10, 2016 12:30
--- NOTE | 2016-07-10 14:08 | NUR ---
Social Work Discharge: Order for discharge acknowledged. Plan is home with son and family support upon discharge. Patient son states that he to assist and care for patient needs. Walker available for use at home. Patient and son denied need for HHC services for wound care at this time. Order for therapy acknowledged. Patient states having no identified discharge needs at this time. SW to await therapy eval to determine eval discharge recommendations at discharge. SW to follow. PLAN: Home with son and family support, pending clinical course. PT eval pending. SW to follow. Patient and son denied need for HHC services at this time Ildefonso SINCLAIR
--- NOTE | 2016-07-10 15:00 | NUR ---
Discharge Pt. discharged to home in stable condition at 1420. Transported via w/c and accompanied by daughter and . IV and tele dc'd prior to discharge. All belongings, scripts and instructions with pt. No questions or concerns at this time.
== END 2016-07-10 14:30 | disposition home or self-care (01) | DRG 300 ==
LOC: SED 11:50 → OSC 16:56
PROVIDERS: ADMIT Hospitalist; ATTEND Hospitalist
DX: E11.52 Type 2 diabetes mellitus with diabetic peripheral angiopathy with gangrene (principal); Z68.1 Body mass index [BMI] 19.9 or less, adult; E44.0 Moderate protein-calorie malnutrition; E11.621 Type 2 diabetes mellitus with foot ulcer; L97.521 Non-pressure chronic ulcer of other part of left foot limited to breakdown of skin; E03.9 Hypothyroidism, unspecified; J44.9 Chronic obstructive pulmonary disease, unspecified; E78.5 Hyperlipidemia, unspecified; I10 Essential (primary) hypertension; I25.10 Atherosclerotic heart disease of native coronary artery without angina pectoris; Z79.4 Long term (current) use of insulin